=== PATIENT | male | born 1960 | race Caucasian/White ===

== ENCOUNTER 2020-04-15 13:43 | Inpatient (IN) | payer MEDICAID ==
[~2020-04-15] VITALS: Ht 188 cm; Wt 104.3 kg
[2020-04-15 15:33] LABS: BASOPHILS % 0.6 % (0.0-2.0); EOSINOPHILS % 0.7 % (0.0-5.0); HEMATOCRIT. 35.2 % (42.0-52.0); LYMPHOCYTES % 15.1 % (20.0-50.0); MEAN CORPUSCULAR HEMOGLOBIN 31.1 pg (28.0-32.0); MEAN CORPUSCULAR VOLUME 91.6 fL (80.0-94.0); MEAN PLATELET VOLUME 6.9 fl (7.4-10.4); MONOCYTES % 5.1 % (2.0-8.0); NEUTROPHILS % 78.5 % (40.0-76.0); PLATELET 290 x1000/uL (130-400); RED BLOOD CELL COUNT 3.85 mill/uL (4.7-6.1); RED CELL DISTRIBUTION WIDTH 15.2 % (11.6-14.6)
[2020-04-15 15:36] LABS: CHLORIDE 104 mEq/L (98-107)
[2020-04-15] MEDS ORDERED: POTASSIUM CHLORIDE 20MEQ TABLET SR PO ONE (16:00)
[2020-04-15] MEDS ORDERED: HYDROCODONE/ACETAMINOPHEN 5/325MG TABLET PO ONE (16:15)
[2020-04-15] MEDS ORDERED: MIDODRINE HCL 5MG TABLET PO ONE (16:15)
[2020-04-15] MEDS ORDERED: CLONIDINE 0.1MG TABLET PO PRN (16:45)
[2020-04-15] MEDS ORDERED: ACETAMINOPHEN 325MG TABLET PO PRN (16:45)
[2020-04-15] MEDS ORDERED: HYDROCODONE/ACETAMINOPHEN 5/325MG TABLET PO PRN (16:45)
[2020-04-15] MEDS ORDERED: DOCUSATE SODIUM 100MG CAPSULE PO PRN (16:45)
[2020-04-15] MEDS ORDERED: LORAZEPAM 0.5MG TABLET PO PRN (16:45)
[2020-04-15] MEDS ORDERED: IPRATROPIUM/ALBUTEROL 0.5-3(2.5)MG/3ML NEB HHN PRN (16:45)
[2020-04-16 06:19] LABS: CHLORIDE 107 mEq/L (98-107)
[2020-04-16 06:27] LABS: BASOPHILS % 0.9 % (0.0-2.0); EOSINOPHILS % 1.2 % (0.0-5.0); HEMATOCRIT. 29.4 % (42.0-52.0); LYMPHOCYTES % 22.9 % (20.0-50.0); MEAN CORPUSCULAR HEMOGLOBIN 30.9 pg (28.0-32.0); MEAN CORPUSCULAR VOLUME 91.1 fL (80.0-94.0); MEAN PLATELET VOLUME 6.9 fl (7.4-10.4); MONOCYTES % 7.6 % (2.0-8.0); NEUTROPHILS % 67.4 % (40.0-76.0); PLATELET 215 x1000/uL (130-400); RED BLOOD CELL COUNT 3.23 mill/uL (4.7-6.1); RED CELL DISTRIBUTION WIDTH 15.3 % (11.6-14.6)
[2020-04-16] MEDS ORDERED: HYDROCODONE/ACETAMINOPHEN 5/325MG TABLET PO PRN (08:15)
[2020-04-16] MEDS: SODIUM CHLORIDE 0.9% 1,000 ML IV SCH (08:30)
[2020-04-16] MEDS ORDERED: MIDODRINE HCL 5MG TABLET PO SCH (09:00)
[2020-04-16] MEDS ORDERED: ALBUMIN HUMAN 25GM/100ML (25%) IV SCH (09:00)
[2020-04-16] MEDS: ACETAMINOPHEN 325MG TABLET PO PRN (09:19)
[2020-04-16] MEDS: MIDODRINE HCL 5MG TABLET PO SCH ×2 (13:30→17:51)
[2020-04-17] MEDS: SODIUM CHLORIDE 0.9% 1,000 ML IV SCH (05:15)
[2020-04-17] MEDS: NOREPINEPHRINE 8 MG in DEXT 5% WATER 242 ML IV PRN ×3 (05:38→17:57)
[2020-04-17 06:16] LABS: CHLORIDE 106 mEq/L (98-107)
[2020-04-17 06:18] LABS: EOSINOPHILS % 1.5 % (0.0-5.0); HEMATOCRIT. 33.5 % (42.0-52.0); HEMOGLOBIN. 11.4 g/dL (14.0-18.0); LYMPHOCYTES % 19.7 % (20.0-50.0); MEAN CORPUSCULAR HEMOGLOBIN 30.6 pg (28.0-32.0); MEAN CORPUSCULAR VOLUME 90.4 fL (80.0-94.0); MEAN PLATELET VOLUME 6.5 fl (7.4-10.4); MONOCYTES % 6.5 % (2.0-8.0); NEUTROPHILS % 71.3 % (40.0-76.0); PLATELET 383 x1000/uL (130-400); RED BLOOD CELL COUNT 3.71 mill/uL (4.7-6.1); RED CELL DISTRIBUTION WIDTH 15.3 % (11.6-14.6)
[2020-04-17 06:21] LABS: TOTAL IRON BINDING CAPACITY 126 ug/dL (250-450)
[2020-04-17 06:23] LABS: PHOSPHORUS 5.3 mg/dL (2.5-4.9)
[2020-04-17 06:26] LABS: CREATINE KINASE 107 IU/L (39-308)
[2020-04-17 06:31] LABS: PARTIAL THROMBOPLASTIN TIME 31.3 sec (23.4-31.0); PROTHROMBIN TIME 10.9 sec (9.6-11.0)
[2020-04-17 06:39] LABS: FOLIC ACID (FOLATE) SERUM 7.7 ng/mL (>5.38)
[2020-04-17 06:47] LABS: HEPATITIS B SURFACE ANTIGEN NEGATIVE
[2020-04-17 06:50] LABS: VITAMIN B12 SERUM 696 pg/mL (211-911)
[2020-04-17 07:16] LABS: HEPATITIS A AB IGM NEGATIVE (NEGATIVE)
[2020-04-17] MEDS ORDERED: LIDOCAINE HCL 1% 20ML VIAL (Pyxis) INJ ONE (08:12)
[2020-04-17] MEDS ORDERED: SODIUM BICARBONATE 4% (2.4MEQ) 5ML VIAL IV ONE (08:13)
[2020-04-17] MEDS ORDERED: ALBUMIN HUMAN 25GM/100ML (25%) IV NR (09:00)
[2020-04-17] MEDS: MIDODRINE HCL 5MG TABLET PO SCH ×3 (11:31→19:27)
[2020-04-18 05:59] LABS: BASOPHILS % 1.2 % (0.0-2.0); HEMOGLOBIN. 11.4 g/dL (14.0-18.0); LYMPHOCYTES % 21.1 % (20.0-50.0); MEAN CORPUSCULAR HEMOGLOBIN 30.8 pg (28.0-32.0); MEAN PLATELET VOLUME 6.2 fl (7.4-10.4); MONOCYTES % 8.5 % (2.0-8.0); NEUTROPHILS % 68.2 % (40.0-76.0); PLATELET 304 x1000/uL (130-400)
[2020-04-18 06:17] LABS: CHLORIDE 107 mEq/L (98-107)
[2020-04-18 06:24] LABS: PHOSPHORUS 3.3 mg/dL (2.5-4.9)
[2020-04-18] MEDS: MIDODRINE HCL 5MG TABLET PO SCH ×2 (09:21→14:00)
[2020-04-18] MEDS: LACTULOSE 20G/30ML UDC PO SCH (09:21)
[2020-04-18] MEDS ORDERED: ALBUMIN HUMAN 25GM/100ML (25%) IV NR (09:45)
[2020-04-18] MEDS ORDERED: ALBUMIN HUMAN 12.5GM/50ML (25%) IV NR (10:30)
[2020-04-18] MEDS: ONDANSETRON HCL 4MG/2ML INJ IV PRN (21:42)
[2020-04-19 04:30] LABS: BASOPHILS % 0.9 % (0.0-2.0); EOSINOPHILS % 1.2 % (0.0-5.0); HEMATOCRIT. 30.1 % (42.0-52.0); HEMOGLOBIN. 10.3 g/dL (14.0-18.0); LYMPHOCYTES % 22.9 % (20.0-50.0); MEAN CORPUSCULAR HEMOGLOBIN 30.9 pg (28.0-32.0); MEAN CORPUSCULAR VOLUME 90.6 fL (80.0-94.0); MEAN PLATELET VOLUME 6.9 fl (7.4-10.4); MONOCYTES % 7.4 % (2.0-8.0); NEUTROPHILS % 67.6 % (40.0-76.0); PLATELET 208 x1000/uL (130-400); RED BLOOD CELL COUNT 3.33 mill/uL (4.7-6.1); RED CELL DISTRIBUTION WIDTH 15.6 % (11.6-14.6)
[2020-04-19 04:40] LABS: PHOSPHORUS 3.2 mg/dL (2.5-4.9)
[2020-04-19] MEDS ORDERED: ALBUMIN HUMAN 12.5GM/50ML (25%) IV NR (09:00)
[2020-04-19] MEDS: LACTULOSE 20G/30ML UDC PO SCH (09:00)
[2020-04-19] MEDS: MIDODRINE HCL 5MG TABLET PO SCH ×3 (09:45→18:26)
[2020-04-19 16:55] VITALS: BP 112/72
[2020-04-19 20:00] VITALS: BP_SYST 109; BP_SYST 112; BP_SYST 129; BP_DIAS 54; BP_DIAS 64; BP_DIAS 80
[2020-04-20] VITALS: BP 114/71
[2020-04-20 04:00] VITALS: BP 95/51
[2020-04-20 06:23] LABS: BASOPHILS % 1.2 % (0.0-2.0); HEMATOCRIT. 27.9 % (42.0-52.0); HEMOGLOBIN. 9.8 g/dL (14.0-18.0); LYMPHOCYTES % 28.5 % (20.0-50.0); MEAN CORPUSCULAR HEMOGLOBIN 31.3 pg (28.0-32.0); MEAN CORPUSCULAR VOLUME 89.2 fL (80.0-94.0); MONOCYTES % 7.6 % (2.0-8.0); NEUTROPHILS % 61.7 % (40.0-76.0); PLATELET 167 x1000/uL (130-400); RED BLOOD CELL COUNT 3.13 mill/uL (4.7-6.1)
[2020-04-20 06:40] LABS: PHOSPHORUS 3.3 mg/dL (2.5-4.9)
[2020-04-20 08:00] VITALS: BP 102/72
[2020-04-20] MEDS: LACTULOSE 20G/30ML UDC PO SCH (08:30)
[2020-04-20] MEDS: MIDODRINE HCL 5MG TABLET PO SCH ×3 (08:32→17:00)
[2020-04-20 12:00] VITALS: BP 107/71
[2020-04-20] MEDS ORDERED: MIDO5TAB4 PO (14:14)
[2020-04-20] MEDS ORDERED: LACT10SO7 PO (14:14)
[2020-04-20 16:00] VITALS: BP 101/68
[2020-04-20 20:00] VITALS: BP 100/60
[2020-04-21] VITALS: BP 115/72
[2020-04-21 04:00] VITALS: BP 109/67
[2020-04-21 06:17] LABS: BASOPHILS % 0.8 % (0.0-2.0); EOSINOPHILS % 1.3 % (0.0-5.0); HEMATOCRIT. 26.3 % (42.0-52.0); HEMOGLOBIN. 9.2 g/dL (14.0-18.0); LYMPHOCYTES % 29.7 % (20.0-50.0); MEAN CORPUSCULAR HEMOGLOBIN 31.5 pg (28.0-32.0); MEAN CORPUSCULAR VOLUME 90.2 fL (80.0-94.0); MEAN PLATELET VOLUME 7.1 fl (7.4-10.4); MONOCYTES % 7.8 % (2.0-8.0); NEUTROPHILS % 60.4 % (40.0-76.0); PLATELET 143 x1000/uL (130-400); RED BLOOD CELL COUNT 2.91 mill/uL (4.7-6.1); RED CELL DISTRIBUTION WIDTH 15.2 % (11.6-14.6)
[2020-04-21 06:57] LABS: PHOSPHORUS 3.4 mg/dL (2.5-4.9)
[2020-04-21 08:00] VITALS: BP 119/75
[2020-04-21] MEDS: LACTULOSE 20G/30ML UDC PO SCH (08:38)
[2020-04-21] MEDS: MIDODRINE HCL 5MG TABLET PO SCH ×3 (08:40→17:26)
[2020-04-21 12:00] VITALS: BP 92/53
[2020-04-21] MEDS: FUROSEMIDE 20MG TABLET PO SCH (14:03)
[2020-04-21 16:00] VITALS: BP 122/82
[2020-04-21 20:00] VITALS: BP 119/84
[2020-04-21] MEDS: ACETAMINOPHEN 325MG TABLET PO PRN (22:09)
[2020-04-22] VITALS: BP 128/83
[2020-04-22 04:00] VITALS: BP 109/68
[2020-04-22 06:46] LABS: BASOPHILS % 0.7 % (0.0-2.0); EOSINOPHILS % 1.2 % (0.0-5.0); HEMATOCRIT. 27.7 % (42.0-52.0); HEMOGLOBIN. 9.6 g/dL (14.0-18.0); LYMPHOCYTES % 20.7 % (20.0-50.0); MEAN CORPUSCULAR HEMOGLOBIN 31.2 pg (28.0-32.0); MEAN CORPUSCULAR VOLUME 89.8 fL (80.0-94.0); MEAN PLATELET VOLUME 7.1 fl (7.4-10.4); MONOCYTES % 7.8 % (2.0-8.0); NEUTROPHILS % 69.6 % (40.0-76.0); PLATELET 168 x1000/uL (130-400); RED BLOOD CELL COUNT 3.09 mill/uL (4.7-6.1)
[2020-04-22 08:00] VITALS: BP 117/76
[2020-04-22] MEDS: LACTULOSE 20G/30ML UDC PO SCH (09:00)
[2020-04-22] MEDS: FUROSEMIDE 20MG TABLET PO SCH (10:06)
[2020-04-22] MEDS: MIDODRINE HCL 5MG TABLET PO SCH ×3 (10:07→13:34)
[2020-04-22 11:57] VITALS: BP 120/88
[2020-04-22 11:59] VITALS: BP 120/88
[2020-04-22] MEDS: ONDANSETRON HCL 4MG/2ML INJ IV PRN (13:34)
== END 2020-04-22 15:27 | disposition home or self-care (01) ==
LOC: ER 13:43 → MICUSO 16:25 → 3WST 04-17 00:04 → MICUSO 04-17 02:03 → 6WST 04-19 17:43
PROVIDERS: ADMIT Internal Medicine; ATTEND Internal Medicine
PROC: 0W9G3ZZ Drainage of Peritoneal Cavity, Percutaneous Approach (ICD-10-PCS; principal; 2020-04-17)
DX: K74.69 Other cirrhosis of liver (principal); I95.9 Hypotension, unspecified; R18.8 Other ascites; E87.2 Acidosis; R16.1 Splenomegaly, not elsewhere classified; D64.9 Anemia, unspecified; R94.31 Abnormal electrocardiogram [ECG] [EKG]; E43 Unspecified severe protein-calorie malnutrition; E87.6 Hypokalemia; N18.9 Chronic kidney disease, unspecified; K76.6 Portal hypertension; I12.9 Hypertensive chronic kidney disease with stage 1 through stage 4 chronic kidney disease, or unspecified chronic kidney disease; I95.1 Orthostatic hypotension; F17.200 Nicotine dependence, unspecified, uncomplicated; F10.10 Alcohol abuse, uncomplicated; Y90.9 Presence of alcohol in blood, level not specified; J98.11 Atelectasis; Z20.822 Contact with and (suspected) exposure to COVID-19; E83.51 Hypocalcemia; K80.10 Calculus of gallbladder with chronic cholecystitis without obstruction; I25.2 Old myocardial infarction; Z82.49 Family history of ischemic heart disease and other diseases of the circulatory system; Z68.29 Body mass index [BMI] 29.0-29.9, adult; Z79.899 Other long term (current) drug therapy; N17.0 Acute kidney failure with tubular necrosis
CPT/HCPCS: 36415; 49083; 71045; 76700; 80048; 80053; 80320; 82040; 82140; 82150; 82270; 82550; 82607; 82728; 82746; 83540; 83550; 83605; 83615; 83735; 83880; 84100; 84145; 84484; 85025; 85044; 86705; 86709; 86803; 87340; 87426; 93005; 93306; 99291; J2405; J3490; J7030; J7060; P9047; G0480